=== PATIENT | female | born 1990 | race Caucasian/White ===

== ENCOUNTER 2020-02-20 10:53 | Emergency (ER) | payer MEDICAID, SELFPAY ==
[2020-02-20 11:12] VITALS: BP 104/60; PULSE 70; RESP 14; TEMP 36.6; O2SAT 100; BMI 25.0
--- NOTE | 2020-02-20 11:17 | ED.FEMALEGU ---
HPI - Female Genitourinary General Chief complaint: Urogenital-Female Stated complaint: ?uti Time Seen by Provider: 02/20/20 11:07 Source: patient Mode of arrival: ambulatory History of Present Illness HPI Narrative: 30-year-old female with no significant past medical history presenting to the ED complaining of dysuria, urinary frequency, and vaginal/lower abdominal discomfort x4 days. Also reports mild low back pain. Admits to hematuria but is on menstruation now. Denies nausea, vomiting, fever, chills, vaginal discharge/abnormal bleeding outside of menstruation, genital lesions, flank pain. Denies being sexually active or concern for STI MD elicited complaint: dysuria and UTI Related Data Previous Rx's Medication Instructions Recorded nitrofurantoin monohyd/m-cryst 100 mg PO Q12H 5 Days #10 cap 02/20/20 [Macrobid] Allergies Allergy/AdvReac Type Severity Reaction Status Date / Time No Known Allergies Allergy Verified 02/20/20 11:15 [No Known Allergies*] Review of Systems Review of Systems: Constitutional: No Weight loss, No Fever, No Chills Gastrointestinal: No Nausea, No Vomiting, No Diarrhea, No Constipation, + Abdominal pain Genitourinary: + Dysuria, + Urinary Frequency, + Hematuria, No Urinary Incontinence, No Urgency, No Flank Pain, no vaginal discharge Musculoskeletal: No joint pain, No Myalgias, No Joint Swelling Skin: No Skin Lesions, No rash Yes all other systems are reviewed and are negative [facility] Past Medical History Attestation statement: The following information was validated with the patient. Surgical History (Updated 02/20/20 @ 11:14 by Aida Stein) Tubal ligation status Social History Social History Alcohol intake: never Smoking Status: Current every day smoker Smoked in Last 30 Days: Yes Use of substances other than those prescribed or required for medical reasons: No Advance Directives: No Advance Directives Information Provided: No Physical Exam Vital Signs: Vital Signs: Vital Signs Temp Pulse Resp BP Pulse Ox 02/20/20 11:12 98 F 70 14 104/60 100 Body Mass Index 25.0 Const: General: cooperative and healthy appearing Orientation/consciousness: patient oriented x3 Limitations: no limitations HENMT: Head: Yes normal to inspection Ears: hearing grossly normal bilaterally General nose exam: Normal external nose present Face and sinus: Yes normal facial exam Eyes: General: appearance normal, both eyes and all related structures EOM: EOMs intact bilaterally Neck: Neck: Yes normal visual inspection Resp: Effort & Inspection: normal respiratory effort GI: Inspection: Yes normal to inspection Palpation (GI): Soft to palpation, Tenderness to palpation present (GI) (Lower abdomen), no guarding and not rigid : General: Yes no CVA tenderness Back/Spine/Pelvis: Back: no CVA tenderness Skin: Rashes: no rashes Wounds: no wounds Neuro: General: patient oriented x3 Gait exam (Neuro): Normal gait present Extrem: General: Yes normal to inspection Course Course Course Narrative: UA infected with nitrates, leuk esterase, wbc's/bacteria, and rbc's > 1st dose Macrobid given in the ED. Patient continues to deny a concern for STI or being sexually active -worrisome signs and symptoms including constant worsening abdominal pain, fever, flank pain discussed with patient, she verbalized understanding and feels safe for discharge. Reports she has follow-up with her OBGYN tomorrow MDM - Female Genitourinary MDM Narrative Medical decision making narrative: 30-year-old female with no significant past medical history presenting to the ED complaining of dysuria, urinary frequency, and vaginal/lower abdominal discomfort x4 days. On exam VSS, NAD/nontoxic appearing, abdomen soft with lower ttp, no CVAT. Concern for UTI. Lower concern for pyelo/renal stone, or STI Plan: UA, U- Lab Data Labs: Lab Results 02/20/20 Range/Units 11:32 Urine Color YELLOW Urine Appearance CLOUDY Urine pH 7.0 (5.0-8.0) Ur Specific [place] 1.025 (1.005-1.025) Urine Protein 2+ H (NEG-TRACE) MG/DL Urine Glucose (UA) NEG (NEG) MG/DL Urine Ketones NEG (NEG) MG/DL Urine Blood 3+ H (NEG) Urine Nitrite POS H (NEG) Ur Leukocyte Esterase 1+ H (NEG) Urine RBC TNTC H (0) /HPF Urine WBC TNTC H (0-4) /HPF Ur Squamous Epith Cells 1+ /LPF Urine Bacteria 3+ /LPF Urine Mucus 2+ /LPF Urine Test NEGATIVE (NEGATIVE) Discharge Plan Discharge Clinical Impression: Urinary tract infection Qualifiers: Urinary tract infection type: acute cystitis Patient Disposition: Home, Self-Care Instructions: Urinary Tract Infection in Women (ED) Additional Instructions: Your urine is very infected Your urine was negative Macrobid is an antibiotic, take as prescribed until completion Stay hydrated at home If symptoms persist or worsen, you develop constant worsening abdominal pain, nausea/vomiting, or back pain return to the ED immediately Prescriptions: New nitrofurantoin monohyd/m-cryst [Macrobid] 100 mg capsule 100 mg PO Q12H 5 Days Qty: 10 RF: 0 Referrals: [facility] [Primary Care Provider] - 3 days Print Language: Wallisian
[2020-02-20 11:47] LABS: Glucose Urine UA NEG (NEG); Leukocyte Esterase Urine 1+ (NEG); Nitrite Urine POS (NEG); Specific Gravity - Urine 1.025 (1.005-1.025); Urine Blood 3+ (NEG); Urine Ketones NEG (NEG); Urine Protein 2+ MG/DL (NEG-TRACE)
[2020-02-20 11:50] LABS: UPreg QC Valid YES; Urine Pregnancy NEGATIVE (NEGATIVE)
[2020-02-20 11:55] LABS: Appearance Urine CLOUDY; Color Urine YELLOW
[2020-02-20 11:59] LABS: Bacteria Urine 3+ /LPF; Mucus Urine 2+ /LPF; RBC Urine TNTC /HPF (0); Squamous Epithelial Cell Urine 1+ /LPF; WBC Urine TNTC /HPF (0-4)
[2020-02-20] MEDS: Nitrofurantoin Monohyd/M-Cryst 100 MG CAPSULE PO (12:28)
== END 2020-02-20 12:30 | disposition home or self-care (01) ==
PROVIDERS: Physician Assistant; Emergency Provider Emergency Medicine
DX: N30.00 Acute cystitis without hematuria (principal); F17.200 Nicotine dependence, unspecified, uncomplicated; Z71.6 Tobacco abuse counseling; Z79.899 Other long term (current) drug therapy
CPT/HCPCS: 81001; 81025; 87086; 87088; 87186; 99283; 99284

== ENCOUNTER 2020-02-28 15:28 | Outpatient (REF) | payer MEDICAID, SELFPAY ==
[2020-02-28 17:54] LABS: Glucose Urine UA NEG (NEG); Leukocyte Esterase Urine TRACE (NEG); Nitrite Urine NEG (NEG); Specific Gravity - Urine 1.025 (1.005-1.025); Urine Blood 1+ (NEG); Urine Ketones NEG (NEG); Urine Protein 1+ MG/DL (NEG-TRACE)
[2020-02-28 17:55] LABS: Appearance Urine HAZY; Color Urine DARK YELLOW
[2020-02-28 18:21] LABS: Mucus Urine 1+ /LPF; Squamous Epithelial Cell Urine TRACE /LPF
[2020-02-29 02:02] LABS: CT PCR NOT DETECTED (Not Detect.); NG PCR NOT DETECTED (Not Detect.)
[2020-02-29 11:25] LABS: BV Int Neg Control Negative (Negative); BV Int Pos Control Positive (Positive)
== END 2020-02-28 15:29 | disposition home or self-care (01) ==
LOC: HO.LAB 15:28
PROVIDERS: Visit Provider Advanced Practice Midwife
DX: Z01.419 Encounter for gynecological examination (general) (routine) without abnormal findings (principal); R10.2 Pelvic and perineal pain; R30.0 Dysuria; N39.0 Urinary tract infection, site not specified; N89.8 Other specified noninflammatory disorders of vagina; Z20.2 Contact with and (suspected) exposure to infections with a predominantly sexual mode of transmission
CPT/HCPCS: 81001; 87086; 87480; 87491; 87510; 87591; 87660; 88142; 99212